=== PATIENT | female | born 1985 | race Caucasian/White ===

== ENCOUNTER 2017-11-22 10:37 | Inpatient (IN) | payer OTHER ==
[~2017-11-22 10:37] MED LIST: CEFAZOLIN 1 GM INJ
[2017-11-22 12:08] LABS: ABNORMAL IP MESSAGE 1; HEMATOCRIT 37.4 % (37.0-47.0); MEAN CORPUSCULAR HEMOGLOBIN 31.4 pg (29.0-33.0); MEAN CORPUSCULAR HGB CONC 34.8 g/dl (32.0-37.0); MEAN CORPUSCULAR VOLUME 90.3 fl (82.0-101.0); MEAN PLATELET VOLUME 11.3 fl (7.4-10.4); PLATELET COUNT 173 10^3/UL (140-415); RED BLOOD COUNT 4.14 10^6/ul (4.20-5.40); RED CELL DISTRIBUTION WIDTH 13.2 % (11.5-14.5)
[2017-11-22 12:08] LABS: WHITE BLOOD COUNT 16.7 10^3/ul (4.8-10.8)
[2017-11-22 12:11] LABS: ADD MAN DIFF? YES; POSITIVE DIFF @See below
[2017-11-22] MEDS: SOD CHLORIDE 0.9% 1,000 ML IV ×3 (12:12→13:20)
[2017-11-22 12:19] LABS: ANION GAP 17 (8-16); BLOOD UREA NITROGEN 12 mg/dl (7-20); CALCIUM 9.8 mg/dl (8.4-10.2); CARBON DIOXIDE 21 mmol/L (21-31); CHLORIDE 105 mmol/L (97-110); CREATININE 0.56 mg/dl (0.44-1.00); GLUCOSE 104 mg/dl (70-220); SODIUM 140 mmol/L (135-144)
[2017-11-22 12:23] LABS: INR 1.03; PARTIAL THROMBOPLASTIN TIME 27.5 Sec (25.0-35.0); PROTIME 13.6 Sec (11.9-14.9); PT RATIO 1.1
[2017-11-22 12:37] LABS: ALANINE AMINOTRANSFERASE 20 IU/L (13-69); ALBUMIN 4.1 g/dl (3.3-4.9); ALKALINE PHOSPHATASE 92 IU/L (42-121); ASPARTATE AMINO TRANSFERASE 21 IU/L (15-46); BILIRUBIN,INDIRECT 0.4 mg/dl (0-1.1); BILIRUBIN,TOTAL 0.4 mg/dl (0.2-1.3); TOTAL PROTEIN 7.7 g/dl (6.1-8.1)
[2017-11-22 13:19] LABS: BAND NEUTROPHILS #M 2.3 10^3/ul (0.0-0.6); BAND NEUTROPHILS % (M) 14 % (0-4); LYMPHOCYTES # 0.5 10^3/ul (0.8-2.9); LYMPHOCYTES #M 0.5 10^3/ul (0.8-2.9); LYMPHOCYTES % (M) 3 % (15-51); MONOCYTE # 0.7 10^3/ul (0.3-0.9); MONOCYTE #M 0.6 10^3/ul (0.3-0.9); MONOCYTES % (M) 4 % (0-11); SEG NEUT #M 13.6 10^3/ul (1.7-7.5); SEGMENTED NEUTROPHILS (M) % 79 % (39-77)
[2017-11-22] MEDS ORDERED: ONDANSETRON 4 MG INJ IV ×2 (14:00→15:00)
[2017-11-22] MEDS ORDERED: HYDROmorphONE (0.2 MG/ML) 10ML SYG IV ×3 (14:00)
[2017-11-22] MEDS ORDERED: METOCLOPRAMIDE 10 MG INJ (14:14)
[2017-11-22] MEDS ORDERED: MIDAZOLAM 1 MG/ML 2 ML INJ (14:14)
[2017-11-22 14:15] LABS: LACTIC ACID 2.1 mmol/L (0.5-2.0)
[2017-11-22] MEDS ORDERED: PROPOFOL 20 ML (14:15)
[2017-11-22] MEDS ORDERED: PHENYLephrine (100 MCG/ML) 5ML SYG ×2 (14:18→14:35)
[2017-11-22] MEDS ORDERED: ONDANSETRON 4 MG INJ (14:18)
[2017-11-22] MEDS ORDERED: METHYLERGONOVINE 0.2 MG INJ (14:34)
[2017-11-22] MEDS ORDERED: KETOROLAC 30 MG INJ (14:39)
[2017-11-22] MEDS ORDERED: IBUPROFEN 600 MG TAB PO (15:00)
[2017-11-22] MEDS ORDERED: DOCUSATE SODIUM 100 MG CAP PO (15:00)
[2017-11-22] MEDS ORDERED: NACL 0.9% 3 ML SYG IV (15:00)
[2017-11-22] MEDS ORDERED: HYDROCODONE/APAP (5/325) TAB PO (15:00)
[2017-11-22] MEDS: LACTATED RINGER'S 1,000 ML IV (15:30)
[2017-11-22] MEDS: POTASSIUM CHLORIDE (SR) 20 MEQ TAB PO (16:08)
[2017-11-22] MEDS ORDERED: EPHEDrine SULFATE 50 MG/5 ML SYG (16:18)
[2017-11-22] MEDS ORDERED: ALBUMIN HUMAN 5% 250 ML (16:18)
[2017-11-22] MEDS: EPHEDrine SULFATE 50 MG/5 ML SYG IV (16:30)
[2017-11-22] MEDS ORDERED: ALBUMIN HUMAN 25% 100 ML IV (16:30)
[2017-11-22] MEDS: ALBUMIN HUMAN 5% 250 ML IV (16:31)
[2017-11-22] MEDS: METHYLERGONOVINE 0.2 MG TAB PO ×3 (17:05→20:21)
[2017-11-22 17:26] LABS: ABNORMAL IP MESSAGE 1; HEMATOCRIT 23.5 % (37.0-47.0); HEMOGLOBIN 8.2 g/dl (12.0-16.0); MEAN CORPUSCULAR HEMOGLOBIN 31.7 pg (29.0-33.0); MEAN CORPUSCULAR HGB CONC 34.9 g/dl (32.0-37.0); MEAN CORPUSCULAR VOLUME 90.7 fl (82.0-101.0); MEAN PLATELET VOLUME 10.3 fl (7.4-10.4); PLATELET COUNT 127 10^3/UL (140-415); RED BLOOD COUNT 2.59 10^6/ul (4.20-5.40); RED CELL DISTRIBUTION WIDTH 13.2 % (11.5-14.5)
[2017-11-22 17:26] LABS: WHITE BLOOD COUNT 16.1 10^3/ul (4.8-10.8)
[2017-11-22 17:27] LABS: POSITIVE DIFF @See below
[2017-11-22 17:29] LABS: ADD MAN DIFF? YES; HOLD TRANSMISSIONS 1
[2017-11-22 18:04] LABS: BAND NEUTROPHILS #M 2.4 10^3/ul (0.0-0.6); BAND NEUTROPHILS % (M) 15 % (0-4); LYMPHOCYTES #M 0.6 10^3/ul (0.8-2.9); LYMPHOCYTES % (M) 4 % (15-51); PLATELET ESTIMATE NORMAL; SEG NEUT #M 13.4 10^3/ul (1.6-7.5); SEGMENTED NEUTROPHILS (M) % 81 % (39-77)
[2017-11-22] MEDS ORDERED: ACETAMINOPHEN 325 MG TAB PO (20:30)
[2017-11-22] MEDS: DOXYCYCLINE 100 MG TAB PO (21:09)
[2017-11-23 07:25] LABS: WHITE BLOOD COUNT 11.8 10^3/ul (4.8-10.8)
[2017-11-23 07:25] LABS: HEMATOCRIT 21.4 % (37.0-47.0); HEMOGLOBIN 7.5 g/dl (12.0-16.0); MEAN CORPUSCULAR HEMOGLOBIN 32.2 pg (29.0-33.0); MEAN CORPUSCULAR VOLUME 91.8 fl (82.0-101.0); MEAN PLATELET VOLUME 12.1 fl (7.4-10.4); PLATELET COUNT 115 10^3/UL (140-415); RED BLOOD COUNT 2.33 10^6/ul (4.20-5.40); RED CELL DISTRIBUTION WIDTH 14.2 % (11.5-14.5)
[2017-11-23 07:30] LABS: ADD MAN DIFF? YES
[2017-11-23] MEDS: DOXYCYCLINE 100 MG TAB PO (08:28)
[2017-11-23] MEDS: METHYLERGONOVINE 0.2 MG TAB PO (08:28)
[2017-11-23 10:17] LABS: BAND NEUTROPHILS #M 1.2 10^3/ul (0.0-0.6); BAND NEUTROPHILS % (M) 11 % (0-4); EOSINOPHILS # 0.1 10^3/ul (0.0-0.5); EOSINOPHILS % (M) 1 % (0.0-7.0); LYMPHOCYTES % (M) 17 % (15-51); MONOCYTE # 0.2 10^3/ul (0.3-0.9); MONOCYTE #M 0.2 10^3/ul (0.3-0.9); MONOCYTES % (M) 2 % (0-11); SEG NEUT #M 8.3 10^3/ul (1.7-7.5); SEGMENTED NEUTROPHILS (M) % 69 % (39-77)
[2017-11-23 10:18] LABS: BURR CELLS OCCASIONAL
[2017-11-23 14:47] LABS: HEMATOCRIT 24.5 % (37.0-47.0); HEMOGLOBIN 8.4 g/dl (12.0-16.0)
[2017-11-24] MEDS ORDERED: INFLUENZA VIRUS VACCINE 0.5 ML (DISPENSING) IM* (09:00)
== END 2017-11-23 16:40 | disposition home or self-care (01) | DRG 770 ==
LOC: FTE 10:37 → SDS 13:57 → MS4 19:19 → SDS 20:22 → REC 15:14 → MS4 19:19
PROC: 10D17ZZ Extraction of Products of Conception, Retained, Via Natural or Artificial Opening (ICD-10-PCS; principal; 2017-11-22 14:13)
DX: O03.30 Unspecified complication following incomplete spontaneous abortion (principal)
CPT/HCPCS: 36415; 76830; 76856; 80048; 80076; 83605; 84702; 85014; 85018; 85025; 85610; 85730; 86850; 86900; 86901; 87040; 88305; 93005; 99291-25